=== PATIENT | female | born 1980 | race Caucasian/White ===

== ENCOUNTER 2017-02-11 07:17 | Emergency (ER) | payer BC, OTHER ==
[~2017-02-11] VITALS: Ht 165.1 cm; Wt 60.0 kg
[2017-02-11 07:19] VITALS: Ht 165.1 cm; Wt 60.0 kg
[2017-02-11] MEDS ORDERED: LIDOCAINE 1% (MDV) 10 ML INJ INJ STA (07:47)
[2017-02-11] MEDS ORDERED: ACETAMINOPHEN 325 MG TAB PO STA (07:47)
--- NOTE | 2017-02-11 07:53 | ERD ---
ER Documentation Chief Complaint Date/Time DATE: 02/11/17 TIME: 07:51 Chief Complaint left leg lac fell at gym, currently wrapped, bleeding under control HPI 36-year-old otherwise healthy female presents to the emergency department who presents to the emergency department after she actually fell in the gym and sustained a laceration to the tib-fib area of her left leg. She reports no numbness, tingling, loss of function ROS All systems reviewed and are negative except as per history of present illness. PMhx/Soc Medical and Surgical Hx: pt denies Medical Hx, pt denies Surgical Hx FmHx noncontributory for chief complaint Physical Exam Vitals Vital Signs Date Time Temp Pulse Resp B/P Pulse Ox O2 Delivery O2 Flow Rate FiO2 02/11/17 07:19 97.8 85 18 110/76 97 Physical Exam Gen: Well-developed well-nourished in no distress Ext: The left tib-fib area is the area of concern. There is a 5 cm laceration to the anterior tib-fib soft tissue. Is no visualizable bone. There is minimal bleeding noted. There is no foreign body noted. Patient has full function to flexion and extension at the ankle and toes distal to the injury. Patient is neurovascularly intact. Results 24 hrs Current Medications Medications (Trade) Dose Ordered Sig/Rachana Route PRN Reason Start Time Stop Time Status Last Admin Dose Admin Lidocaine HCl (Lidocaine 1% (Mdv) 10 ml) 10 ml ONCE STAT INJ 02/11/17 07:47 02/11/17 07:49 DC Acetaminophen (Tylenol Tab) 650 mg ONCE STAT PO 02/11/17 07:47 02/11/17 07:49 DC 02/11/17 08:08 Lidocaine (Xylocaine 1% (Mdv) 20 ml) 20 ml STK-MED ONCE .ROUTE 02/11/17 08:01 02/11/17 08:02 DC Procedures/MDM Procedure: Laceration repair Verbal consent was obtained from the patient. Local anesthesia was provided. Wound was irrigated and cleaned. 1 layer closure was performed. Patient tolerated procedure without difficulty or complications. Patient was then crutched trained after the wound was dressed. MDM: 36-year-old female presents with an extensive left leg laceration. After wound care, the wound seems to be much improved. There is no evidence of underlying fracture or vascular or neurologic concern. Departure Diagnosis: Primary Impression: Laceration Condition: Stable Patient Instructions: Laceration, All Additional Instructions: Keep the wound clean and covered for the next 24 hours. You should have the wound rechecked in 24-48 hours by your doctor or in the ER. The stiches will need to be removed in about 14 days Use the crutches to keep the pressure off the wound until it heals. Return for any fever, redness, or other concerns YOSEF BARKER Feb 11, 2017 07:53
[2017-02-11] MEDS ORDERED: LIDOCAINE 1% (MDV) 20 ML INJ ONE (08:01)
--- NOTE | 2017-02-11 08:16 | RADRPT ---
PROCEDURE: XR Tibia and Fibula. CLINICAL INDICATION: Left lower leg pain after trauma TECHNIQUE: Two views of the left tibia and fibula are available for review. COMPARISON: None available FINDINGS: There is normal mineralization and alignment of the bones of the left tibia and fibula. There is no evidence of acute fracture or dislocation. The suboptimally visualized joint spaces appear grossly within normal limits. There is made of a skin defect in the anterior lower rivera. A few calcificatio ns are noted in the posterior calf. IMPRESSION: 1. Anterior skin defect without evidence of underlying osseous pathology.. RPTAT: [facility] .Chino Valenzuela MD, MD Date Time Electronically viewed and signed by .Chino Valenzuela MD, on 02/11/2017 08:16 .B/
== END 2017-02-11 09:00 | disposition home or self-care (01) ==
LOC: FTE 07:17
DX: S81.812A Laceration without foreign body, left lower leg, initial encounter (principal); W18.39XA Other fall on same level, initial encounter; Y92.39 Other specified sports and athletic area as the place of occurrence of the external cause
CPT/HCPCS: 73590